=== PATIENT | female | born 1965 | race Asian ===

== ENCOUNTER 2018-02-14 08:34 | Day surgery (SDC) | payer BC ==
[2018-02-14] MEDS ORDERED: MIDAZOLAM 1 MG/ML 2 ML INJ (11:36)
[2018-02-14] MEDS ORDERED: FENTAnyl 50 MCG/ML VIAL (11:37)
== END 2018-02-14 15:00 | disposition home or self-care (01) ==
LOC: GIL 08:34
DX: Z12.11 Encounter for screening for malignant neoplasm of colon (principal); K64.8 Other hemorrhoids; K57.90 Diverticulosis of intestine, part unspecified, without perforation or abscess without bleeding
CPT/HCPCS: 45378; 84703

== ENCOUNTER → 2019-01-11 | Outpatient (CLI) | payer BC ==
[2019-01-11 08:26] LABS: ADD MAN DIFF? NO
[2019-01-11 08:34] LABS: WHITE BLOOD COUNT 3.6 10^3/ul (4.8-10.8)
[2019-01-11 08:34] LABS: BASOPHILS % 0.6 % (0.0-2.0); EOSINOPHILS # 0.1 10^3/ul (0.0-0.5); EOSINOPHILS % 1.7 % (0.0-7.0); HEMATOCRIT 38.8 % (37.0-47.0); HEMOGLOBIN 12.8 g/dl (12.0-16.0); LYMPHOCYTES # 1.1 10^3/ul (0.8-2.9); MEAN CORPUSCULAR HEMOGLOBIN 30.6 pg (29.0-33.0); MEAN CORPUSCULAR VOLUME 92.8 fl (82.0-101.0); MEAN PLATELET VOLUME 9.5 fl (7.4-10.4); MONOCYTE # 0.3 10^3/ul (0.3-0.9); MONOCYTES % 9.3 % (0.0-11.0); NEUTROPHILS % 56.1 % (39.0-77.0); PLATELET COUNT 194 10^3/UL (140-415); RED BLOOD COUNT 4.18 10^6/ul (4.20-5.40); RED CELL DISTRIBUTION WIDTH 13.4 % (11.5-14.5)
[2019-01-11 08:55] LABS: ALANINE AMINOTRANSFERASE 46 IU/L (13-69); ALBUMIN 4.2 g/dl (3.3-4.9); ALKALINE PHOSPHATASE 44 IU/L (42-121); ANION GAP 10 (5-13); ASPARTATE AMINO TRANSFERASE 29 IU/L (15-46); BILIRUBIN,INDIRECT 0.6 mg/dl (0-1.1); BILIRUBIN,TOTAL 0.6 mg/dl (0.2-1.3); BLOOD UREA NITROGEN 12 mg/dl (7-20); CALCIUM 9.1 mg/dl (8.4-10.2); CARBON DIOXIDE 27 mmol/L (21-31); CHLORIDE 107 mmol/L (97-110); CHOL/HDL RATIO 3.2 RATIO; CHOLESTEROL 216 mg/dl (100-200); CREATININE 0.69 mg/dl (0.44-1.00); Estimated GFR > 60 mL/min (>60); GLUCOSE 104 mg/dl (70-220); HDL CHOLESTEROL 66 mg/dl (37-92); LDL CHOLESTEROL,CALCULATED 133 mg/dl; POTASSIUM 3.9 mmol/L (3.5-5.1); SODIUM 144 mmol/L (135-144); TOTAL PROTEIN 7.2 g/dl (6.1-8.1); TRIGLYCERIDES 87 mg/dl (0-149)
[2019-01-11 09:11] LABS: HEMOGLOBIN A1C 5.6 % (0-5.9)
[2019-01-11 09:13] LABS: T4 (THYROXINE) 7.3 ug/dl (5.5-11.0)
== END | disposition home or self-care (01) ==
LOC: LAB 07:35
DX: E78.5 Hyperlipidemia, unspecified (principal); R73.03 Prediabetes; E03.9 Hypothyroidism, unspecified
CPT/HCPCS: 80053; 80061; 83036; 84436; 84443; 85025